=== PATIENT | female | born 1985 | race American Indian/Alaskan Native ===

== ENCOUNTER 2017-01-17 14:23 | Emergency (ER) | payer MEDICAID, MEDICARE ==
[2017-01-17 14:24] VITALS: BMI 31.8
[2017-01-17 14:47] VITALS: BP 100/67; PULSE 92; RESP 17; TEMP 98.7; O2SAT 100
--- NOTE | 2017-01-17 15:11 | ED PDOC ---
Arrival/HPI - General Chief Complaint: Dental Pain Time Seen by Provider: 01/17/17 14:59 Historian: Patient - History of Present Illness Narrative History of Present Illness (Text): 01/17/17 14:53 A 31 year old female, whose past medical history includes renal transplant, hypertension, and diabetes, presents to the emergency department complaining of upper left-side facial swelling since yesterday. Patient reports she did not go to work yesterday and instead stayed home to sleep in hopes of swelling reducing on its own. She woke up this morning to find swelling had not decreased. Patient states she has had similar problem before and had the dentist extract her tooth. Patient denies fever, drooling, chills, stiff neck. No PMD Time/Duration: 24 hours Symptom Onset: Sudden Symptom Course: Unchanged Past Medical History - Provider Review Nursing Documentation Reviewed: Yes - Infectious Disease Hx of Infectious Diseases: None - Tetanus Immunization Tetanus Immunization: Unknown - Past Medical History Past Medical History: No Previous - Cardiac Hx Cardiac Disorders: Yes Hx Hypertension: Yes Other/Comment: hypercholesteremia - Pulmonary Hx Respiratory Disorders: No - Neurological Hx Neurological Disorder: No - HEENT Hx HEENT Disorder: No - Renal Hx Renal Disorder: Yes Hx Dialysis: Yes (2009) Hx Renal Failure: Yes Other/Comment: b/l kidney transplant - Endocrine/Metabolic Hx Endocrine Disorders: Yes Hx Diabetes Mellitus Type 2: Yes - Hematological/Oncological Hx Blood Disorders: Yes Hx Anemia: Yes Hx Blood Transfusions: Yes () Hx Blood Transfusion Reaction: No - Integumentary Hx Dermatological Disorder: No - Musculoskeletal/Rheumatological Hx Musculoskeletal Disorders: No - Gastrointestinal Hx Gastrointestinal Disorders: No - Genitourinary/Gynecological Hx Genitourinary Disorders: Yes Other/Comment: kidney transplant - Psychiatric Hx Psychophysiologic Disorder: No Hx Substance Use: No - Past Surgical History Past Surgical History: No Previous - Surgical History Hx Section: Yes Hx Kidney Transplant: Yes (left 2009 right 2012) Other/Comment: pt still has dialysis cath right groin - Anesthesia Hx Anesthesia: Yes - Suicidal Assessment Feels Threatened In Home Enviroment: No Family/Social History - Physician Review Nursing Documentation Reviewed: Yes Family/Social History: No Known Family HX Smoking Status: Never Smoked Hx Alcohol Use: No Hx Substance Use: No Hx Substance Use Treatment: No Allergies/Home Meds Allergies/Adverse Reactions: Allergies Penicillins Allergy (Verified 01/17/17 14:37) ANAPHYLAXIS shellfish derived Allergy (Verified 01/17/17 14:37) RASH Home Medications: Home Meds Medication Instructions Recorded Confirmed Carvedilol [Coreg] 25 mg PO BID 01/27/15 01/17/17 Magnesium Oxide [Magox 400] 1 tab PO TID 01/27/15 01/17/17 Furosemide [Lasix] 80 mg PO BID 07/12/15 01/17/17 Mycophenolate Sodium [Mycophenolic 180 mg PO BID 07/12/15 01/17/17 Acid] Omeprazole [Prilosec] 20 mg PO DAILY 07/12/15 01/17/17 Tacrolimus [Prograf Cap] 0.5 mg PO BID 07/12/15 01/17/17 traMADol [Ultram] 50 mg PO BID 07/12/15 01/17/17 Amlodipine Besylate [Norvasc] 5 mg PO DAILY 09/13/15 01/17/17 Prednisone [Rafael] 5 mg PO DAILY 09/13/15 01/17/17 Tacrolimus [Prograf Cap] 1 mg PO BID 09/13/15 01/17/17 Review of Systems - Physician Review All systems were reviewed & negative as marked: Yes - Review of Systems Constitutional: absent: Fevers Respiratory: absent: SOB Physical Exam - Physical Exam Narrative Physical Exam (Text): Constitutional: No acute distress. Head: Significant swelling of left-upper cheek Eyes: PERRL. ENT: Moist mucous membranes. Poor dentition. Uvula midline. Neck: Supple. Cardiovascular: Regular rate. Chest: No tenderness. Respiratory: Clear to auscultation bilaterally. GI: Soft. Nontender. Nondistended. Back: No CVA tenderness. Musculoskeletal: No tenderness or swelling of extremities. Skin: No rash. Neurologic: Alert, no focal deficit. Vital Signs Reviewed: Yes Vital Signs Temp Pulse Resp BP Pulse Ox 01/17/17 14:41 98.7 F 92 H 17 100/67 100 Temperature: Afebrile Blood Pressure: Normal Pulse: Regular Respiratory Rate: Normal Appearance: Positive for: Well-Appearing Pain Distress: None Medical Decision Making ED Course and Treatment: 01/17/17 15:02 Impression: 31 year old female with left-side facial swelling. Plan: -- Cleocin -- Decadron -- Reassess and disposition Prior Visits: Notes and results from previous visits were reviewed. On 05/25/2016 for right lower leg swelling. Patient left AMA. Progress Notes: Patient treated with antibiotics, steroids, prescribed pain medication. Drug registry checked, last narcotic was almost 1 year prior. I advised patient follow up with dentistry as soon as possible, and she stated that she can see them tomorrow morning. I instructed the patient to return to the ED immediately for worsening swelling, drooling, fever, chills. - Medication Orders Current Medication Orders: Discontinued Medications Clindamycin HCl (Cleocin) 300 mg PO STAT STA PRN Reason: Protocol Stop: 01/17/17 15:08 Last Admin: 01/17/17 15:23 Dose: 300 mg Dexamethasone (Decadron) 10 mg PO STAT STA Stop: 01/17/17 15:08 Last Admin: 01/17/17 15:23 Dose: 10 mg - Scribe Statement The provider has reviewed the documentation as recorded by the Elva Rios Provider Scribe Provider Blakeibbernard Attestation: All medical record entries made by the Elva were at my direction and personally dictated by me. I have reviewed the chart and agree that the record accurately reflects my personal performance of the history, physical exam, medical decision making, and the department course for this patient. I have also personally directed, reviewed, and agree with the discharge instructions and disposition. Disposition/Present on Arrival - Present on Arrival Any Indicators Present on Arrival: No History of DVT/PE: No History of Uncontrolled Diabetes: No Urinary Catheter: No History of Decub. Ulcer: No History Surgical Site Infection Following: None - Disposition Have Diagnosis and Disposition been Completed?: Yes Diagnosis: Dental infection Disposition: HOME/ ROUTINE Disposition Time: 15:30 Patient Plan: Discharge Condition: STABLE Discharge Instructions (ExitCare): Toothache (ED) Prescriptions: Clindamycin [Cleocin] 300 mg PO TID #21 cap Dexamethasone [Decadron] 10 mg PO ONCE #5 tab oxyCODONE/Acetaminophen [Percocet 5/325 mg Tab] 1 tab PO Q6 #10 tab Forms: [employer] (Khmer)
== END 2017-01-17 15:35 | disposition home or self-care (01) ==
LOC: ED 14:23
DX: K04.7 Periapical abscess without sinus (principal)
CPT/HCPCS: 99282; J8540

== ENCOUNTER 2017-07-02 01:57 | Emergency (ER) | payer MEDICARE ==
[2017-07-02 02:45] VITALS: BMI 30.1
--- NOTE | 2017-07-02 03:09 | ED PDOC ---
Addendum entered and electronically signed by Roge Danielle DO 07/02/17 03:41 : Disposition - Clinical Impression Clinical Impression: Swelling of left side of face, Pain, dental - POA Present On Arrival: None - Disposition Disposition: Routine/Home Disposition Time: 03:41 Condition: STABLE Additional Instructions: 1. Follow up with dentist as soon as possible 2. Take medications as prescribed 3. Return to Emergency department if symptoms worsen, including but not limited to drooling, fever, or neck stiffness. Prescriptions: Clindamycin [Cleocin] 300 mg PO TID #21 cap Dexamethasone [Decadron] 10 mg PO DAILY #5 tab Instructions: Dental Pain (DC) Forms: [employer] (Nauruan), WORK NOTE Original Note: Arrival/HPI <Roge Danielle - Last Filed: 07/02/17 03:39> <Travis Buck - Last Filed: 07/02/17 03:48> - General Chief Complaint: Dental Pain - History of Present Illness Narrative History of Present Illness (Text): 07/02/17 03:09 Pt is a 32 yo F with PMH of renal transplant, hypertension, and diabetes, presents to the emergency department complaining of left facial pain and swelling for the past day. Pt stated that pain is similar to past occurences and ultimately had her teeth extracted. Pt states that since Sunday is a holiday she would not be able to get a dental appointment until Sunday. Thus, she came to Emergency department today for evaluation. Pt denies shortness of breath, drooling, fever, chills, stiff neck, headache, or dizziness. (Roge Danielle) Past Medical History - Infectious Disease Hx of Infectious Diseases: None - Tetanus Immunization Tetanus Immunization: Unknown - Past Medical History Past Medical History: No Previous - Cardiac Hx Cardiac Disorders: Yes Hx Hypertension: Yes Other/Comment: hypercholesteremia - Pulmonary Hx Respiratory Disorders: No - Neurological Hx Neurological Disorder: No - HEENT Hx HEENT Disorder: No - Renal Hx Renal Disorder: Yes Hx Dialysis: Yes (2009) Hx Renal Failure: Yes Other/Comment: b/l kidney transplant - Endocrine/Metabolic Hx Endocrine Disorders: Yes Hx Diabetes Mellitus Type 2: Yes - Hematological/Oncological Hx Blood Disorders: Yes Hx Anemia: Yes Hx Blood Transfusions: Yes () Hx Blood Transfusion Reaction: No - Integumentary Hx Dermatological Disorder: No - Musculoskeletal/Rheumatological Hx Musculoskeletal Disorders: No - Gastrointestinal Hx Gastrointestinal Disorders: No - Genitourinary/Gynecological Hx Genitourinary Disorders: Yes Other/Comment: kidney transplant - Psychiatric Hx Psychophysiologic Disorder: No Hx Substance Use: No - Past Surgical History Past Surgical History: No Previous - Surgical History Hx Section: Yes Hx Kidney Transplant: Yes (left 2010 right 2012) Other/Comment: pt still has dialysis cath right groin - Anesthesia Hx Anesthesia: Yes - Suicidal Assessment Feels Threatened In Home Enviroment: No <Roge Danielle - Last Filed: 07/02/17 03:39> Family/Social History Family/Social History: No Known Family HX Smoking Status: Never Smoked Hx Alcohol Use: No Hx Substance Use: No Hx Substance Use Treatment: No <Roge Danielle - Last Filed: 07/02/17 03:39> Allergies/Home Meds <Roge Danielle - Last Filed: 07/02/17 03:39> <Travis Buck - Last Filed: 07/02/17 03:48> Allergies/Adverse Reactions: Allergies Penicillins Allergy (Verified 07/02/17 02:45) ANAPHYLAXIS shellfish derived Allergy (Verified 07/02/17 02:45) RASH Home Medications: Home Meds Medication Instructions Recorded Confirmed Carvedilol [Coreg] 25 mg PO BID 01/27/15 07/02/17 Magnesium Oxide [Magox 400] 1 tab PO TID 01/27/15 07/02/17 Furosemide [Lasix] 80 mg PO BID 07/12/15 07/02/17 Mycophenolate Sodium [Mycophenolic 180 mg PO BID 07/12/15 07/02/17 Acid] Omeprazole [Prilosec] 20 mg PO DAILY 07/12/15 07/02/17 Tacrolimus [Prograf Cap] 0.5 mg PO BID 07/12/15 07/02/17 traMADol [Ultram] 50 mg PO BID 07/12/15 07/02/17 Amlodipine Besylate [Norvasc] 5 mg PO DAILY 09/13/15 07/02/17 Review of Systems - Review of Systems Constitutional: Normal Eyes: Normal ENT: Other (left dental pain and facial swelling) Respiratory: Normal Cardiovascular: Normal Gastrointestinal: Normal Genitourinary Female: Normal Musculoskeletal: Normal Skin: Normal Neurological: Normal Endocrine: Normal Hemo/Lymphatic: Normal Psychiatric: Normal <Roge Danielle - Last Filed: 07/02/17 03:39> Physical Exam Vital Signs Reviewed: Yes Temperature: Afebrile Blood Pressure: Normal Pulse: Regular Respiratory Rate: Normal Appearance: Positive for: Uncomfortable Pain Distress: Moderate Mental Status: Positive for: Alert and Oriented X 3 - Systems Exam Head: Present: Atraumatic, Normocephalic, Swelling (left facial swelling) Extroacular Muscles: Present: EOMI Mouth: Present: Moist Mucous Membranes, Other (left oral mucosa swelling). No: Drooling, Normal Teeth (dental cavity noted on left upper molar) Neck: Present: Normal Range of Motion Respiratory/Chest: Present: Clear to Auscultation. No: Accessory Muscle Use, Wheezes, Rales, Rhonchi Cardiovascular: Present: Regular Rate and Rhythm, Normal S1, S2. No: Murmurs, Rub, Gallop Abdomen: No: Tenderness, Distention, Peritoneal Signs, Rebound, Guarding Back: Present: Normal Inspection Upper Extremity: Present: Normal Inspection Lower Extremity: Present: Normal Inspection Neurological: Present: GCS=15 Skin: Present: Warm, Dry, Normal Color Psychiatric: Present: Alert, Oriented x 3 <Roge Danielle - Last Filed: 07/02/17 03:39> Vital Signs Temp Pulse Resp BP Pulse Ox 07/02/17 03:17 98.4 F 88 16 108/71 98 Medical Decision Making <Roge Danielle - Last Filed: 07/02/17 03:39> <Travis Buck - Last Filed: 07/02/17 03:48> ED Course and Treatment: 07/02/17 03:23 Assessment: 32 yo F presents to Emergency department with left facial swelling and dental caries. Plan: - Clindamycin - Decadron Disposition: - Rx Clindamycin and Decadron PO - Discussed with patient need for dental hygiene and to follow with dentist as soon as possible - Advised patient to return if symptoms worsen, including fever, drooling, increased swelling, intractable nausea, vomiting, neck stiffness. (Roge Danielle) Impression: Pt seen and evaluated with medical health researcher. Pt, whose past medical history includes renal transplant, hypertension, and diabetes, presented for left-sided facial pain with swelling. States similar symptoms in the past, which resulted in teeth extraction. Aware and agree with HPI, clinical findingd, plan, and management. Plan: -- Cleocin -- Decadron -- Reassess and disposition (Travis Buck) - Medication Orders Current Medication Orders: Discontinued Medications Clindamycin HCl (Cleocin) 300 mg PO STAT STA PRN Reason: Protocol Stop: 07/02/17 03:08 Dexamethasone (Decadron) 10 mg PO STAT STA Stop: 07/02/17 03:08 - PA / LABEL MAKER / Resident Statement / has reviewed & agrees with the documentation as recorded. / has examined the patient and agrees with the treatment plan. <Travis Buck - Last Filed: 07/02/17 03:48> Disposition/Present on Arrival - Present on Arrival Any Indicators Present on Arrival: No History of DVT/PE: No History of Uncontrolled Diabetes: No Urinary Catheter: No History Surgical Site Infection Following: None - Disposition Have Diagnosis and Disposition been Completed?: Yes Disposition Time: 03:31 Patient Plan: Discharge <Roge Danielle - Last Filed: 07/02/17 03:39> <Travis Buck - Last Filed: 07/02/17 03:48> - Disposition Diagnosis: Pain, dental, Swelling of left side of face Disposition: HOME/ ROUTINE Condition: STABLE Discharge Instructions (ExitCare): Dental Pain (DC) Additional Instructions: 1. Follow up with dentist as soon as possible 2. Take medications as prescribed 3. Return to Emergency department if symptoms worsen, including but not limited to drooling, fever, or neck stiffness. Prescriptions: Clindamycin [Cleocin] 300 mg PO TID #21 cap Dexamethasone [Decadron] 10 mg PO DAILY #5 tab Forms: [facility] (Nauruan), WORK NOTE
[2017-07-02 03:20] VITALS: BP 108/71; PULSE 88; O2SAT 98
[2017-07-02 04:05] VITALS: RESP 20; TEMP 98.7
== END 2017-07-02 04:05 | disposition home or self-care (01) ==
LOC: ED 01:57
DX: R22.0 Localized swelling, mass and lump, head (principal); K08.89 Other specified disorders of teeth and supporting structures; E11.9 Type 2 diabetes mellitus without complications; E78.00 Pure hypercholesterolemia, unspecified; I10 Essential (primary) hypertension
CPT/HCPCS: 99282; J8540

== ENCOUNTER 2017-07-28 15:10 | Emergency (ER) | payer MEDICARE, OTHER ==
[2017-07-28 15:10] VITALS: BMI 30.1
[2017-07-28 15:25] VITALS: TEMP 98
--- NOTE | 2017-07-28 15:48 | ED PDOC ---
Arrival/HPI - General Chief Complaint: Female Genitourinary Time Seen by Provider: 07/28/17 15:27 Historian: Patient - History of Present Illness Narrative History of Present Illness (Text): 07/28/17 15:45 32yo female [id number] with Past medical history of hypertension, Diabetes , kidney transplant who present with complaint of vaginal bleeding since this afternoon. States her LMP was June 20 2017. She states it only lasted for 2days, but usually last for 5days. States 2 home test was both positive. States she stated to have vaginal bleeding while showering today. She denies abdominal pain, fever, chills, urinary symptoms, any other complaint. Past Medical History - Provider Review Nursing Documentation Reviewed: Yes - Infectious Disease Hx of Infectious Diseases: None - Tetanus Immunization Tetanus Immunization: Unknown - Past Medical History Past Medical History: No Previous - Cardiac Hx Cardiac Disorders: Yes Hx Hypertension: Yes Other/Comment: hypercholesteremia - Pulmonary Hx Respiratory Disorders: No - Neurological Hx Neurological Disorder: No - HEENT Hx HEENT Disorder: No - Renal Hx Renal Disorder: Yes Hx Dialysis: Yes (2009) Hx Renal Failure: Yes Other/Comment: b/l kidney transplant - Endocrine/Metabolic Hx Endocrine Disorders: Yes Hx Diabetes Mellitus Type 2: Yes - Hematological/Oncological Hx Blood Disorders: Yes Hx Anemia: Yes Hx Blood Transfusions: Yes () Hx Blood Transfusion Reaction: No - Integumentary Hx Dermatological Disorder: No - Musculoskeletal/Rheumatological Hx Musculoskeletal Disorders: No - Gastrointestinal Hx Gastrointestinal Disorders: No - Genitourinary/Gynecological Hx Genitourinary Disorders: Yes Other/Comment: kidney transplant - Psychiatric Hx Psychophysiologic Disorder: No Hx Substance Use: No - Past Surgical History Past Surgical History: No Previous - Surgical History Hx Section: Yes Hx Kidney Transplant: Yes (left 2009 right 2012) Other/Comment: pt still has dialysis cath right groin - Anesthesia Hx Anesthesia: Yes Hx Anesthesia Reactions: No Hx Malignant Hyperthermia: No - Suicidal Assessment Feels Threatened In Home Enviroment: No Family/Social History - Physician Review Nursing Documentation Reviewed: Yes Family/Social History: Unknown Family HX Smoking Status: Never Smoked Hx Alcohol Use: No Hx Substance Use: No Hx Substance Use Treatment: No Allergies/Home Meds Allergies/Adverse Reactions: Allergies Penicillins Allergy (Verified 07/28/17 15:25) ANAPHYLAXIS shellfish derived Allergy (Verified 07/28/17 15:25) RASH Home Medications: Home Meds Medication Instructions Recorded Confirmed Magnesium Oxide [Magox 400] 1 tab PO TID 01/27/15 07/28/17 Tacrolimus [Prograf Cap] 1 mg PO DAILY 07/12/15 07/28/17 Carvedilol [Coreg] 1 tab PO DAILY 07/28/17 07/28/17 Prednisone [Rafael] 1 tab PO DAILY 07/28/17 07/28/17 Review of Systems - Physician Review All systems were reviewed & negative as marked: Yes - Review of Systems Constitutional: Normal Eyes: Normal ENT: Normal Respiratory: Normal Cardiovascular: Normal Gastrointestinal: Normal Genitourinary Female: Vaginal Bleeding. absent: Dysuria, Frequency, Hematuria, Vaginal Discharge Musculoskeletal: Normal Skin: Normal Neurological: Normal Endocrine: Normal Hemo/Lymphatic: Normal Psychiatric: Normal Physical Exam Vital Signs Reviewed: Yes Vital Signs Temp Pulse Resp BP Pulse Ox 07/28/17 17:48 86 18 115/76 96 07/28/17 15:21 98 F 92 H 19 117/82 95 Temperature: Afebrile Blood Pressure: Normal Pulse: Regular Respiratory Rate: Normal Appearance: Positive for: Well-Appearing, Non-Toxic, Comfortable Pain Distress: None Mental Status: Positive for: Alert and Oriented X 3 - Systems Exam Head: Present: Atraumatic, Normocephalic Pupils: Present: PERRL Extroacular Muscles: Present: EOMI Conjunctiva: Present: Normal Mouth: Present: Moist Mucous Membranes Neck: Present: Normal Range of Motion Respiratory/Chest: Present: Clear to Auscultation, Good Air Exchange. No: Respiratory Distress, Accessory Muscle Use Cardiovascular: Present: Regular Rate and Rhythm, Normal S1, S2. No: Murmurs Abdomen: Present: Normal Bowel Sounds. No: Tenderness, Distention, Peritoneal Signs Genitourinary/Pelvic Exam: Present: Other (Pt declined pelvic exam) Back: Present: Normal Inspection Upper Extremity: Present: Normal Inspection. No: Cyanosis, Edema Lower Extremity: Present: Normal Inspection. No: Edema Neurological: Present: GCS=15, CN II-XII Intact, Speech Normal Skin: Present: Warm, Dry, Normal Color. No: Rashes Psychiatric: Present: Alert, Oriented x 3, Normal Insight, Normal Concentration Medical Decision Making ED Course and Treatment: 07/29/17 01:26 Pt in Emergency department for stated history. She denied abdominal/back pain in Emergency department. she was hemodynamically stable in Emergency department. She declined pelvic exam. Per the US tech, pt also refused transvaginal Ultrasound I spoke and advised pt on the improtnave of having transvaginal US at this stage of her . She notes that she understood, but still refused. states the last time she have transvaginal test, she bleed profusely and ended up in OR to stop the bleeding. Pelvic Us was done. Beta of 26.77 was noted. she was treated with Macrobid for UTI. Her result was DW her Pelvic US 07/29/17 01:31 IMPRESSION: No evidence of intrauterine . The ovaries were not visualized in this exam. Correlation with the beta HCG levels is suggested she notes that she have appt. with OB on Sunday. she was advised to f/u with her OB on Sunday for a repeat beta. TRT Emergency department for any new or worsening symptoms - Lab Interpretations Lab Results: 07/28/17 16:10 07/28/17 16:10 Lab Results 07/28/17 17:00: Blood Type Confirm AB POSITIVE 07/28/17 16:10: Blood Type AB POSITIVE, Antibody Screen Negative, BBK History Checked No verified bt 07/28/17 16:10: Beta HCG, Quant 26.77 H 07/28/17 16:10: Sodium 137, Potassium 3.5 L, Chloride 105, Carbon Dioxide 23, Anion Gap 13, BUN 12, Creatinine 1.1, Est GFR ( Amer) > 60, Est GFR (Non- Af Amer) 58, Random Glucose 179 H, Calcium 10.6 H, Total Bilirubin 1.3, AST 23, ALT 23, Alkaline Phosphatase 93, Total Protein 8.2, Albumin 4.2, Globulin 4.0, Albumin/Globulin Ratio 1.1 07/28/17 16:10: PT 12.7 H, INR 1.11 H, APTT 36.2 07/28/17 16:10: WBC 8.6 D, RBC 4.35, Hgb 10.8 L, Hct 34.2 L, MCV 78.6 L, MCH 24.8 L, MCHC 31.6, RDW 18.0 H, Plt Count 203, MPV 9.5, Gran % 83.0 H, Lymph % ( Auto) 9.8 L, [place] % (Auto) 4.9, Eos % (Auto) 2.2, Baso % (Auto) 0.1, Gran # 7.17 H, Lymph # (Auto) 0.9 L, [place] # (Auto) 0.4, Eos # (Auto) 0.2, Baso # (Auto ) 0.01 07/28/17 16:07: Urine Color Yellow, Urine Appearance Cloudy, Urine pH 6.5, Ur Specific [place] 1.015, Urine Protein 30 H, Urine Glucose (UA) Negative, Urine Ketones Negative, Urine Blood Large H, Urine Nitrate Positive H, Urine Bilirubin Negative, Urine Urobilinogen 0.2, Ur Leukocyte Esterase Large H, Urine RBC Tntc, Urine WBC Tntc, Ur Epithelial Cells 10 - 12, Urine Bacteria Many , Urine HCG, Qual Positive - RAD Interpretation Radiology Orders: 07/28/17 15:39 PELVIS ULTRASOUND [US] Stat - Medication Orders Current Medication Orders: Discontinued Medications Sodium Chloride (Sodium Chloride 0.9%) 1,000 mls @ 999 mls/hr IV .Q1H1M STA Stop: 07/28/17 17:04 Last Admin: 07/28/17 16:17 Dose: 999 mls/hr eMAR Start Stop Document 07/28/17 16:17 ABHILASH (Rec: 07/28/17 16:17 ABHILASH [id number]) Intravenous Solution Start Date 07/28/17 Start Time 16:17 End Date 07/28/17 End time 17:17 Total Infusion Time 60 Nitrofurantoin Macrocrystals (Macrobid) 100 mg PO ONCE STA PRN Reason: Protocol Stop: 07/28/17 18:04 Last Admin: 07/28/17 18:29 Dose: 100 mg Disposition/Present on Arrival - Present on Arrival Any Indicators Present on Arrival: No History of DVT/PE: No History of Uncontrolled Diabetes: No Urinary Catheter: No History of Decub. Ulcer: No History Surgical Site Infection Following: None - Disposition Have Diagnosis and Disposition been Completed?: Yes Diagnosis: UTI (urinary tract infection), Threatened Disposition: HOME/ ROUTINE Disposition Time: 17:55 Patient Plan: Discharge Condition: STABLE Discharge Instructions (ExitCare): Urinary Tract Infections in Adults Additional Instructions: Follow up with your OB Return to Emergency department for any new or worsening symptoms Prescriptions: Nitrofurantoin Macrocrystals [Macrobid] 100 mg PO BID #14 cap Referrals: Drew Smith MD [Staff Provider] - Follow up with primary Forms: [employer] (Turkmen), WORK NOTE
[2017-07-28] MEDS ORDERED: Sodium Chloride 0.9% 1,000 ML IV STA (16:04)
[2017-07-28 16:15] LABS: PH,URINE 6.5 (4.7-8.0); URINE BILIRUBIN NEGATIVE (NEGATIVE); URINE BLOOD LARGE (NEGATIVE); URINE GLUCOSE (UA) NEGATIVE (NEGATIVE); URINE LEUKOCYTE ESTERASE LARGE Leu/uL (NEGATIVE); URINE PROTEIN 30 mg/dL (<30 mg/dL); URINE UROBILINOGEN 0.2 E.U./dL (<1 E.U./dL)
[2017-07-28 16:16] LABS: URINE APPEARANCE CLOUDY (CLEAR); URINE COLOR YELLOW (YELLOW)
[2017-07-28 16:26] LABS: URINE BACTERIA MANY (NEG); URINE RBC TNTC /hpf (0-2); URINE WBC TNTC /hpf (0-6)
[2017-07-28 16:27] LABS: HCG,QUALITATIVE URINE POSITIVE (NEGATIVE)
[2017-07-28 16:30] LABS: BASO # 0.01 K/mm3 (0.0-2.0); BASO % 0.1 % (0.0-3.0); EOS # 0.2 (0.0-0.7); EOS % 2.2 % (1.5-5.0); GRAN # 7.17 (1.4-6.5); HEMOGLOBIN 10.8 g/dL (12.0-16.0); LYMPH # 0.9 (1.2-3.4); LYMPH % 9.8 % (22.0-35.0); MEAN CELL VOLUME 78.6 fl (80.0-105.0); MEAN CORPUSCULAR HEMOGLOBIN 24.8 pg (25.0-35.0); MEAN CORPUSCULAR HGB CONC 31.6 g/dl (31.0-37.0); MEAN PLATELET VOLUME 9.5 fl (7.0-11.0); MONO # 0.4 (0.1-0.6); MONO % 4.9 % (1.0-6.0); RBC 4.35 10^6/uL (3.5-6.1); WHITE BLOOD COUNT 8.6 10^3/ul (4.5-11.0)
[2017-07-28 16:36] LABS: INR 1.11 (0.93-1.08); PARTIAL THROMBOPLASTIN TIME 36.2 Seconds (25.1-36.5); PROTHROMBIN TIME 12.7 SECONDS (9.4-12.5)
[2017-07-28 16:39] LABS: ALB/GLOB RATIO 1.1 (1.1-1.8); ALBUMIN 4.2 g/dL (3.0-4.8); ALT/SGPT 23 U/L (7-56); AST/SGOT 23 U/L (14-36); BLOOD UREA NITROGEN 12 mg/dL (7-21); CALCIUM 10.6 mg/dL (8.4-10.5); GFR AFRICAN-AMERICAN > 60; GFR NON-AFRICAN AMERICAN 58
--- NOTE | 2017-07-28 17:38 | US ---
HISTORY: vaginalk bleeding/ COMPARISON: None available. TECHNIQUE: Transabdominal ultrasound examination of the pelvis. Patient refusal transvaginal exam. FINDINGS: UTERUS: Measures 10.2 x 3.7 x 3.7 cm. Normal in size and appearance. No fibroid or other mass lesion seen. ENDOMETRIUM: Measures 6.5 mm in diameter. Unremarkable. CERVIX: No cervical abnormality identified. RIGHT OVARY: The right ovary was not visualized. LEFT OVARY: The left ovary was not visualized. FREE FLUID: No significant free fluid noted. OTHER FINDINGS: None. IMPRESSION: No evidence of intrauterine . The ovaries were not visualized in this exam. Correlation with the beta HCG levels is suggested
[2017-07-28 17:49] VITALS: BP 115/76; PULSE 86; RESP 18; O2SAT 96
== END 2017-07-28 18:31 | disposition home or self-care (01) ==
LOC: ED 15:10
DX: O20.0 Threatened abortion (principal); O23.40 Unspecified infection of urinary tract in pregnancy, unspecified trimester
CPT/HCPCS: 76856; 80053; 81001; 84702; 84703; 85025; 85610; 85730; 86850; 86900; 87086; 96360; 99283; J7040

== ENCOUNTER 2017-08-06 02:00 | Emergency (ER) | payer OTHER ==
[2017-08-06 02:00] VITALS: BMI 30.1
[2017-08-06 02:15] VITALS: RESP 18; TEMP 98.7
--- NOTE | 2017-08-06 02:35 | ED PDOC ---
Arrival/HPI <Travis Buck - Last Filed: 08/06/17 03:41> - General Historian: Patient - History of Present Illness Time/Duration: < week Symptom Onset: Sudden Symptom Course: Improving Quality: Cramping Activities at Onset: Rest Context: Sitting <Larry Pinto - Last Filed: 08/06/17 05:52> - General Chief Complaint: Female Genitourinary Time Seen by Provider: 08/06/17 02:08 - History of Present Illness Narrative History of Present Illness (Text): 08/06/17 02:25 Patient is a 32F w/ a PMH of a bilateral kidney transplant in the remote past who comes in with a CC of vaginal bleeding and a negative test at home. She states that on 07/28 she presented to the ED with vaginal bleeding and a positive test. She was told to follow up with citrus fruit packer. She called to make an appointment but they couldn't see her until 08/13. On Sunday of this week she had an episode of heavy bleeding and since then the bleeding has slowed down. Today she is spotting. Patient had a negative test today which prompted her to come to the ED. Her menstrual history is as follows: regular period lasting 5 days ending on 05/13, 2 day light bleeding on 05/23, missed period in June. (Larry Pinto) Past Medical History - Provider Review Nursing Documentation Reviewed: Yes <Travis Buck - Last Filed: 08/06/17 03:41> - Infectious Disease Hx of Infectious Diseases: None - Tetanus Immunization Tetanus Immunization: Unknown - Past Medical History Past Medical History: No Previous - Cardiac Hx Cardiac Disorders: Yes Hx Hypertension: Yes Other/Comment: hypercholesteremia - Pulmonary Hx Respiratory Disorders: No - Neurological Hx Neurological Disorder: No - HEENT Hx HEENT Disorder: No - Renal Hx Renal Disorder: Yes Hx Dialysis: Yes (2009) Hx Renal Failure: Yes Other/Comment: b/l kidney transplant - Endocrine/Metabolic Hx Endocrine Disorders: Yes Hx Diabetes Mellitus Type 2: Yes - Hematological/Oncological Hx Blood Disorders: Yes Hx Anemia: Yes Hx Blood Transfusions: Yes () Hx Blood Transfusion Reaction: No - Integumentary Hx Dermatological Disorder: No - Musculoskeletal/Rheumatological Hx Musculoskeletal Disorders: No - Gastrointestinal Hx Gastrointestinal Disorders: No - Genitourinary/Gynecological Hx Genitourinary Disorders: Yes Other/Comment: kidney transplant - Psychiatric Hx Psychophysiologic Disorder: No Hx Substance Use: No - Past Surgical History Past Surgical History: No Previous - Surgical History Hx Section: Yes Hx Kidney Transplant: Yes (left 2009 right 2012) Other/Comment: pt still has dialysis cath right groin - Anesthesia Hx Anesthesia: Yes Hx Anesthesia Reactions: No Hx Malignant Hyperthermia: No - Suicidal Assessment Feels Threatened In Home Enviroment: No <Larry Pinto - Last Filed: 08/06/17 05:52> Family/Social History - Physician Review Nursing Documentation Reviewed: Yes Family/Social History: Unknown Family HX <Travis Buck - Last Filed: 08/06/17 03:41> Family/Social History: Unknown Family HX Smoking Status: Never Smoked Hx Alcohol Use: No Hx Substance Use: No Hx Substance Use Treatment: No <Larry Pinto - Last Filed: 08/06/17 05:52> Allergies/Home Meds <Travis Buck - Last Filed: 08/06/17 03:41> <Larry Pinto - Last Filed: 08/06/17 05:52> Allergies/Adverse Reactions: Allergies Penicillins Allergy (Verified 07/28/17 15:25) ANAPHYLAXIS shellfish derived Allergy (Verified 07/28/17 15:25) RASH Home Medications: Home Meds Medication Instructions Recorded Confirmed Magnesium Oxide [Magox 400] 1 tab PO TID 01/27/15 08/06/17 Tacrolimus [Prograf Cap] 1 mg PO DAILY 07/12/15 08/06/17 Carvedilol [Coreg] 1 tab PO DAILY 07/28/17 08/06/17 Prednisone [Rafael] 1 tab PO DAILY 07/28/17 08/06/17 Review of Systems - Review of Systems Constitutional: Normal Eyes: Normal ENT: Normal Respiratory: Normal Cardiovascular: Normal Gastrointestinal: Normal, Abdominal Pain Genitourinary Female: Vaginal Bleeding Musculoskeletal: Normal Skin: Normal Neurological: Normal Endocrine: Normal Hemo/Lymphatic: Normal Psychiatric: Normal <Larry Pinto - Last Filed: 08/06/17 05:52> Physical Exam Vital Signs Reviewed: Yes Temperature: Afebrile Blood Pressure: Hypertensive Pulse: Regular Respiratory Rate: Tachypneic Appearance: Positive for: Well-Appearing, Non-Toxic, Comfortable Pain Distress: None Mental Status: Positive for: Alert and Oriented X 3 - Systems Exam Head: Present: Atraumatic, Normocephalic Pupils: Present: PERRL Extroacular Muscles: Present: EOMI Conjunctiva: Present: Normal Mouth: Present: Moist Mucous Membranes Neck: Present: Normal Range of Motion Respiratory/Chest: Present: Clear to Auscultation, Good Air Exchange. No: Respiratory Distress, Accessory Muscle Use Cardiovascular: Present: Regular Rate and Rhythm. No: Murmurs, Normal S1, S2 Abdomen: Present: Normal Bowel Sounds. No: Tenderness, Distention, Peritoneal Signs Upper Extremity: Present: Normal Inspection. No: Cyanosis, Edema Lower Extremity: Present: Normal Inspection. No: Edema Neurological: Present: GCS=15, CN II-XII Intact, Speech Normal Skin: Present: Warm, Dry, Normal Color. No: Rashes Psychiatric: Present: Alert, Oriented x 3, Normal Insight, Normal Concentration <Larry Pinto - Last Filed: 08/06/17 05:52> Vital Signs Temp Pulse Resp BP Pulse Ox 08/06/17 04:00 85 18 135/77 98 08/06/17 02:14 98.7 F 100 H 18 157/91 H 99 Medical Decision Making <Travis Buck - Last Filed: 08/06/17 03:41> Reassessment Condition: Improved <Larry Pinto - Last Filed: 08/06/17 05:52> ED Course and Treatment: Impression: Pt seen and evaluated with medical anthropologist. Pt, whose past medical history includes bilateral kidney transplant, presented for vaginal bleeding and a negative test. Pt recently seen in the Emergency department on 07/28 for similar complaint, noted to have a positive test, and instructed to f/u with her OBGYN.Aware and agree with HPI, clinical findings, plan, and management. Plan: -- Pelvis US -- Beta-HCG -- Reassess and disposition (Travis Buck) 08/06/17 02:56 Patient passed clots vaginally on sunday and now is lightly bleeding + negative home preg today. Bhcg and pelvic US. Patient stated she is unable to tolerate transvaginal US due to pain. States last time she needed transvaginal US she was put under anesthesia 08/06/17 04:37 BHcG negative, most likely Spontaneous AB. Patient instructed to f/u with IN SERVICE EDUCATOR (Larry Pinto) - Lab Interpretations Lab Results: Lab Results 08/06/17 02:45: Beta HCG, Quant < 2.39 - RAD Interpretation Radiology Orders: 08/06/17 02:57 Pelvis [PELVIS ULTRASOUND] [US] Routine - PA / VEHICLE COST ENGINEER / Resident Statement THADDEUS has reviewed & agrees with the documentation as recorded. / has examined the patient and agrees with the treatment plan. <Travis Buck - Last Filed: 08/06/17 03:41> - PA / VEHICLE COST ENGINEER / Resident Statement THADDEUS has reviewed & agrees with the documentation as recorded. / has examined the patient and agrees with the treatment plan. <Larry Pinto - Last Filed: 08/06/17 05:52> Disposition/Present on Arrival <Travis Buck - Last Filed: 08/06/17 03:41> - Present on Arrival Any Indicators Present on Arrival: No History of DVT/PE: No History of Uncontrolled Diabetes: No Urinary Catheter: No History of Decub. Ulcer: No History Surgical Site Infection Following: None - Disposition Have Diagnosis and Disposition been Completed?: Yes Disposition Time: 04:38 Patient Plan: Discharge <Larry Pinto - Last Filed: 08/06/17 05:52> - Disposition Diagnosis: Spontaneous Disposition: HOME/ ROUTINE Condition: STABLE Additional Instructions: Please follow up with primary care doctor within one week Please follow up with mechanical systems engineer w/in one week Please come back to the ED if you develop fevers or worsening abdominal pain Forms: [employer] (Uzbek)
[2017-08-06 05:05] VITALS: BP 135/77; PULSE 85; O2SAT 98
--- NOTE | 2017-08-06 05:47 | US ---
EXAM: US First Trimester, Transabdominal CLINICAL HISTORY: 32 years old, female; Pain; Pelvic pain; Additional info: Cant tolerate transvaginal us. Poss. Spontanous ab TECHNIQUE: Real-time transabdominal obstetrical ultrasound of the maternal pelvis and a first trimester with image documentation. COMPARISON: US - PELVIS ULTRASOUND 2017-07-28 15:42 FINDINGS: Gestation: No intrauterine gestational sac. Uterus/cervix: Endometrium: 0.7 cm in thickness. Closed cervix. Ovaries: Not visualized. No adnexal masses. Free fluid: No significant free fluid. IMPRESSION: 1. No intrauterine gestation. DDX: Early IUP, missed , ectopic .
== END 2017-08-06 04:46 | disposition home or self-care (01) ==
LOC: ED 02:00
DX: O03.9 Complete or unspecified spontaneous abortion without complication (principal)

== ENCOUNTER 2017-10-31 10:30 | Emergency (ER) | payer MEDICARE, MEDICAID ==
[2017-10-31 10:30] VITALS: BMI 30.1
--- NOTE | 2017-10-31 10:57 | ED PDOC ---
Arrival/HPI - General Time Seen by Provider: 10/31/17 10:56 Historian: Patient - History of Present Illness Narrative History of Present Illness (Text): 10/31/17 10:57 This 32 yo female, Gravid, 11 weeks, with pmh IDDM, s/p bilateral kidney transplant, presents to this ED c/o abdominal injury x TRIM CARPENTER. Patient stated she tripped and fell down on her abdomen. Patient denies abdominal pain, pelvic pain, vaginal bleeding, n/v, WALSH, dizziness, syncope, or abnormal gait. Patient denies somatic complains. Time/Duration: Other (see hpi) Context: Home Past Medical History - Provider Review Nursing Documentation Reviewed: Yes - Infectious Disease Hx of Infectious Diseases: None - Tetanus Immunization Tetanus Immunization: Unknown - Past Medical History Past Medical History: No Previous - Cardiac Hx Cardiac Disorders: Yes Hx Hypertension: Yes Other/Comment: hypercholesteremia - Pulmonary Hx Respiratory Disorders: No - Neurological Hx Neurological Disorder: No - HEENT Hx HEENT Disorder: No - Renal Hx Renal Disorder: Yes Hx Dialysis: Yes (2009) Hx Renal Failure: Yes Other/Comment: b/l kidney transplant - Endocrine/Metabolic Hx Endocrine Disorders: Yes Hx Diabetes Mellitus Type 2: Yes - Hematological/Oncological Hx Blood Disorders: Yes Hx Anemia: Yes Hx Blood Transfusions: Yes () Hx Blood Transfusion Reaction: No - Integumentary Hx Dermatological Disorder: No - Musculoskeletal/Rheumatological Hx Musculoskeletal Disorders: No - Gastrointestinal Hx Gastrointestinal Disorders: No - Genitourinary/Gynecological Hx Genitourinary Disorders: Yes Other/Comment: kidney transplant - Psychiatric Hx Psychophysiologic Disorder: No Hx Substance Use: No - Past Surgical History Past Surgical History: No Previous - Surgical History Hx Section: Yes Hx Kidney Transplant: Yes (left 2009 right 2012) Other/Comment: pt still has dialysis cath right groin - Anesthesia Hx Anesthesia: Yes Hx Anesthesia Reactions: No Hx Malignant Hyperthermia: No - Suicidal Assessment Feels Threatened In Home Enviroment: No Family/Social History - Physician Review Nursing Documentation Reviewed: Yes Family/Social History: Other (noncontributory) Smoking Status: Never Smoked Hx Alcohol Use: No Hx Substance Use: No Hx Substance Use Treatment: No Allergies/Home Meds Allergies/Adverse Reactions: Allergies Penicillins Allergy (Verified 10/31/17 11:18) ANAPHYLAXIS shellfish derived Allergy (Verified 10/31/17 11:18) RASH Home Medications: Home Meds Medication Instructions Recorded Confirmed amLODIPine [Norvasc] 10 mg PO DAILY 10/31/17 10/31/17 Review of Systems - Physician Review All systems were reviewed & negative as marked: Yes - Review of Systems Constitutional: Normal. absent: Fatigue, Weight Change, Fevers Eyes: Normal ENT: Normal Respiratory: Normal. absent: SOB, Cough Cardiovascular: Normal. absent: Chest Pain Gastrointestinal: Normal. absent: Abdominal Pain, Nausea, Vomiting Genitourinary Female: Normal. absent: Dysuria, Frequency, Hematuria, Vaginal Bleeding, Vaginal Discharge Musculoskeletal: Normal. absent: Back Pain, Neck Pain Skin: Normal. absent: Rash Neurological: Normal. absent: Headache, Dizziness, Focal Weakness, Gait Changes , Speech Changes, Facial Droop, Disequilibrium, Seizure Endocrine: Normal Hemo/Lymphatic: Normal Psychiatric: Normal Physical Exam Vital Signs Temp Pulse Resp BP Pulse Ox 10/31/17 12:50 58 L 18 118/75 99 10/31/17 11:22 98.3 F 52 L 18 116/72 99 10/31/17 11:06 98.3 F 52 L 18 116/72 98 Temperature: Afebrile Blood Pressure: Normal Pulse: Regular Respiratory Rate: Normal Appearance: Positive for: Well-Appearing, Non-Toxic, Comfortable Pain Distress: None Mental Status: Positive for: Alert and Oriented X 3 - Systems Exam Head: Present: Atraumatic, Normocephalic Pupils: Present: PERRL Extroacular Muscles: Present: EOMI Conjunctiva: Present: Normal Mouth: Present: Moist Mucous Membranes Neck: Present: Normal Range of Motion Respiratory/Chest: Present: Clear to Auscultation, Good Air Exchange. No: Respiratory Distress, Accessory Muscle Use Cardiovascular: Present: Regular Rate and Rhythm, Normal S1, S2. No: Murmurs Abdomen: No: Tenderness, Distention, Peritoneal Signs, Rebound, Guarding Back: Present: Normal Inspection Upper Extremity: Present: Normal Inspection. No: Cyanosis, Edema Lower Extremity: Present: Normal Inspection. No: Edema Neurological: Present: GCS=15, CN II-XII Intact, Speech Normal Skin: Present: Warm, Dry, Normal Color. No: Rashes Psychiatric: Present: Alert, Oriented x 3, Normal Insight, Normal Concentration Medical Decision Making ED Course and Treatment: 06/20/18 13:15 Patient is not in the room. Farzana EMT stated she saw the patient leaving her room , speaking on her cellphone. Patient ELOPED before labs, or u/s result available. Re-evaluation Time: 13:16 Reassessment Condition: Re-examined, Unchanged - Lab Interpretations Lab Results: 10/31/17 12:30 10/31/17 12:30 Lab Results 10/31/17 12:30: Sodium 141, Potassium 3.4 L, Chloride 107, Carbon Dioxide 20 L, Anion Gap 17, BUN 10, Creatinine 1.0, Est GFR ( Amer) > 60, Est GFR (Non- Af Amer) > 60, Random Glucose 117 H, Calcium 10.6 H, Total Bilirubin 0.5, AST 22 , ALT 13, Alkaline Phosphatase 71, Total Protein 8.9 H, Albumin 4.5, Globulin 4.4, Albumin/Globulin Ratio 1.0 L 10/31/17 12:30: WBC 9.8, RBC 4.04, Hgb 9.7 L, Hct 30.3 L, MCV 75.0 L D, MCH 24.0 L, MCHC 32.0, RDW 17.8 H, Plt Count 198, MPV 9.7, Gran % 76.7 H, Lymph % ( Auto) 15.1 L, [place] % (Auto) 7.2 H, Eos % (Auto) 0.9 L, Baso % (Auto) 0.1, Gran # 7.51 H, Lymph # (Auto) 1.5, [place] # (Auto) 0.7 H, Eos # (Auto) 0.1, Baso # ( Auto) 0.01 - RAD Interpretation Radiology Orders: 10/31/17 11:14 AGE [US] Stat Disposition/Present on Arrival - Present on Arrival Any Indicators Present on Arrival: No History of DVT/PE: No History of Uncontrolled Diabetes: No Urinary Catheter: No History Surgical Site Infection Following: None - Disposition Have Diagnosis and Disposition been Completed?: Yes Diagnosis: with 13 completed weeks gestation, Fall Disposition: ELOPEMENT - ER ONLY Disposition Time: 01:15 Condition: UNKNOWN
[2017-10-31 11:18] VITALS: RESP 18
[2017-10-31 13:02] LABS: BASO # 0.01 K/mm3 (0.0-2.0); BASO % 0.1 % (0.0-3.0); EOS # 0.1 (0.0-0.7); EOS % 0.9 % (1.5-5.0); GRAN # 7.51 (1.4-6.5); GRAN % 76.7 % (50.0-68.0); HEMOGLOBIN 9.7 g/dL (12.0-16.0); LYMPH # 1.5 (1.2-3.4); LYMPH % 15.1 % (22.0-35.0); MEAN PLATELET VOLUME 9.7 fl (7.0-11.0); MONO # 0.7 (0.1-0.6); MONO % 7.2 % (1.0-6.0); RBC 4.04 10^6/uL (3.5-6.1); RED CELL DISTRIBUTION WIDTH 17.8 % (11.5-14.5); WHITE BLOOD COUNT 9.8 10^3/ul (4.5-11.0)
[2017-10-31 13:20] LABS: ALBUMIN 4.5 g/dL (3.0-4.8); ALT/SGPT 13 U/L (7-56); AST/SGOT 22 U/L (14-36); BLOOD UREA NITROGEN 10 mg/dL (7-21); CALCIUM 10.6 mg/dL (8.4-10.5); GFR AFRICAN-AMERICAN > 60; GFR NON-AFRICAN AMERICAN > 60
--- NOTE | 2017-10-31 15:35 | US ---
PROCEDURE: OB Pelvic Ultrasound HISTORY: pain/ fall LMP: COMPARISON: None available. FINDINGS: UTERUS: There is a single viable intrauterine . heart rate 153. The placenta is anterior and clear of the os. There is a variable present a cordoba. There is motion. BPD equals 13 weeks 6 days Head circumference equals 13 weeks 5 days Femur length equals 13 weeks 0 days. Mean ultrasound age 13 weeks 4 days Estimated date of delivery 05/04/2018 A detailed anatomic survey was not performed CERVIX: Long and closed. No cervical abnormality seen. RIGHT OVARY: Not seen LEFT OVARY: Not seen FREE FLUID: None. OTHER FINDINGS: None. IMPRESSION: Single viable intrauterine with a gestational age of 13 weeks 4 days
[2017-10-31 18:54] VITALS: BP 120/69; PULSE 60; TEMP 98.2; O2SAT 100
== END 2017-10-31 13:30 | disposition left against medical advice (07) ==
LOC: ED 10:30
DX: O26.891 Other specified pregnancy related conditions, first trimester (principal); Z3A.13 13 weeks gestation of pregnancy; W10.9XXA Fall (on) (from) unspecified stairs and steps, initial encounter; Y92.9 Unspecified place or not applicable

== ENCOUNTER 2018-04-07 00:37 | Emergency (ER) | payer MEDICARE, MEDICAID ==
[2018-04-07 00:37] VITALS: BMI 30.1
[2018-04-07 00:59] VITALS: TEMP 98.2
--- NOTE | 2018-04-07 01:55 | ED PDOC ---
Arrival/HPI - General Chief Complaint: ENT Problem Time Seen by Provider: 04/07/18 00:38 Historian: Patient - History of Present Illness Narrative History of Present Illness (Text): 04/07/18 01:51 Rosalinda Ramos is a 32 year old female, currently 9 months , scheduled for a in 3 days, who presents to the Emergency department with 2 day history of acid reflux. Patient states she feels burning sensation radiating up and down the center of chest. Patient states she feel as if food is coming up. Patient states she has been burping more frequently. Patient notes she has a history of acid reflux and was taking Nexium prior to . Patient states last week she was hospitalized for evaluation of possible early delivery with leakage of fluids. Patient was hospitalized for a few days and placed under pho[place] toring and discharged home. pt currently denies any abdominal pain, leakage of fluids, contractions, or vaginal bleeding. Patient states during this she has had nausea and vomiting up until last week and has been eating unhealthy large amounts of food. Patient also denies any chest pain, shortness of breath, fever, chills, URI symptoms, or any other complaints. Time/Duration: Other (2 days) Symptom Onset: Gradual Symptom Course: Unchanged Activities at Onset: Light Context: Home Past Medical History - Provider Review Nursing Documentation Reviewed: Yes - Travel History Have you recently traveled outside [place] w/in the past 3 mons?: No - Infectious Disease Hx of Infectious Diseases: None - Tetanus Immunization Tetanus Immunization: Unknown - Past Medical History Past Medical History: No Previous - Cardiac Hx Cardiac Disorders: Yes Hx Hypertension: Yes Other/Comment: hypercholesteremia - Pulmonary Hx Respiratory Disorders: No - Neurological Hx Neurological Disorder: No - HEENT Hx HEENT Disorder: No - Renal Hx Renal Disorder: Yes Hx Dialysis: Yes (2009) Hx Renal Failure: Yes Other/Comment: b/l kidney transplant - Endocrine/Metabolic Hx Endocrine Disorders: Yes Hx Diabetes Mellitus Type 2: Yes - Hematological/Oncological Hx Blood Disorders: Yes Hx Anemia: Yes Hx Blood Transfusions: Yes () Hx Blood Transfusion Reaction: No - Integumentary Hx Dermatological Disorder: No - Musculoskeletal/Rheumatological Hx Musculoskeletal Disorders: No - Gastrointestinal Hx Gastrointestinal Disorders: No - Genitourinary/Gynecological Hx Genitourinary Disorders: Yes Other/Comment: kidney transplant - Psychiatric Hx Psychophysiologic Disorder: No Hx Substance Use: No - Past Surgical History Past Surgical History: No Previous - Surgical History Hx Section: Yes Hx Kidney Transplant: Yes (left 2010 right 2012) Other/Comment: pt still has dialysis cath right groin - Anesthesia Hx Anesthesia: Yes Hx Anesthesia Reactions: No Hx Malignant Hyperthermia: No - Suicidal Assessment Feels Threatened In Home Enviroment: No Family/Social History - Physician Review Nursing Documentation Reviewed: Yes Family/Social History: Unknown Family HX Smoking Status: Never Smoked Hx Alcohol Use: No Hx Substance Use: No Hx Substance Use Treatment: No Allergies/Home Meds Allergies/Adverse Reactions: Allergies Penicillins Allergy (Verified 04/07/18 00:58) ANAPHYLAXIS shellfish derived Allergy (Verified 04/07/18 00:58) RASH Home Medications: Home Meds Medication Instructions Recorded Confirmed amLODIPine [Norvasc] 10 mg PO DAILY 10/31/17 10/31/17 Review of Systems - Physician Review All systems were reviewed & negative as marked: Yes - Review of Systems Constitutional: Normal. absent: Fevers Eyes: Normal ENT: Sore Throat. absent: Voice Changes, Epistaxis, Sinus Congestion Respiratory: Normal. absent: SOB, Cough Cardiovascular: Normal. absent: Chest Pain Gastrointestinal: Other (+acid reflux). absent: Abdominal Pain, Diarrhea, Nausea, Vomiting Genitourinary Female: Normal. absent: Dysuria, Frequency Musculoskeletal: Normal. absent: Arthralgias, Back Pain Skin: Normal. absent: Rash, Pruritis Neurological: Normal. absent: Headache, Dizziness Psychiatric: Normal Physical Exam Vital Signs Reviewed: Yes Vital Signs Temp Pulse Resp BP Pulse Ox 04/07/18 00:58 98.2 F 108 H 18 137/82 97 Temperature: Afebrile Blood Pressure: Normal Pulse: Tachycardic Respiratory Rate: Normal Appearance: Positive for: Well-Appearing, Non-Toxic, Comfortable Pain Distress: None Mental Status: Positive for: Alert and Oriented X 3 - Systems Exam Head: Present: Atraumatic, Normocephalic Conjunctiva: Present: Normal Ears: Present: Normal, NORMAL TM, Normal Canal. No: Erythema, TM Bulging, Fluid, TM Perf Mouth: Present: Moist Mucous Membranes Pharnyx: Present: Normal. No: ERYTHEMA, EXUDATE, TONSILS ENLARGED, Peritonsilar Swelling, Uvular Deviation, Muffled/Hoarse Voice, Strider, Soft Palate/Uvular Edema Nose (External): Present: Atraumatic Nose (Internal): Present: Normal Inspection. No: Clear Mucous, Rhinorrhea, Septal Deviation, Septal Hematoma, Epistaxis Neck: Present: Normal Range of Motion, Trachea Midline. No: Meningeal Signs, MIDLINE TENDERNESS, Paraspinal Tenderness, Lymphadenopathy Respiratory/Chest: Present: Clear to Auscultation, Good Air Exchange. No: Respiratory Distress, Accessory Muscle Use, Tender to Palpation Cardiovascular: Present: Regular Rate and Rhythm, Normal S1, S2. No: Murmurs Abdomen: No: Tenderness, Peritoneal Signs Back: Present: Normal Inspection Upper Extremity: Present: Normal Inspection. No: Cyanosis, Edema Lower Extremity: Present: Normal Inspection. No: Edema Neurological: Present: GCS=15, Speech Normal Skin: Present: Warm, Dry, Normal Color. No: Rashes Psychiatric: Present: Alert, Oriented x 3 Medical Decision Making ED Course and Treatment: 04/07/18 01:51 Impression: 32 year old female complaining of acid reflux/burning sensation for 2 days. Plan: -- Pepcid -- Reassess and disposition Progress Notes: pt is non toxic well appearing; no distress. resting comfortably in er on cell phone. pt denies abdominal pain, no fever/chills. no uri symptoms. pt with hx of acid reflux prior to . will start pepcid. pt was advised to f/u with manufacturing team member tomorrow. advised immediate return if symptoms worsen,persist or if new symptoms develop. Patient verbalizes understanding of discharge instructions and need for immediate followup. all aspects of this case were discussed the attending of record. Impression: Gastritis Pepcid once daily Follow-up with her rrts tomorrow Return immediately if symptoms worsen persist or if new concerning symptoms develop - Scribe Statement The provider has reviewed the documentation as recorded by the Elva Oscar Provider Scribe Attestation: All medical record entries made by the Scribe were at my direction and personally dictated by me. I have reviewed the chart and agree that the record accurately reflects my personal performance of the history, physical exam, medical decision making, and the department course for this patient. I have also personally directed, reviewed, and agree with the discharge instructions and disposition. Disposition/Present on Arrival - Present on Arrival Any Indicators Present on Arrival: No History of DVT/PE: No History of Uncontrolled Diabetes: No Urinary Catheter: No History of Decub. Ulcer: No History Surgical Site Infection Following: None - Disposition Have Diagnosis and Disposition been Completed?: Yes Diagnosis: Gastritis Disposition: HOME/ ROUTINE Disposition Time: 02:19 Patient Plan: Discharge Condition: GOOD Discharge Instructions (ExitCare): Gastritis Additional Instructions: Pepcid once daily Follow-up with the rrts tomorrow Return immediately if symptoms worsen persist or if new concerning symptoms develop Prescriptions: Famotidine [Pepcid] 20 mg PO DAILY #30 tab Referrals: Akil Azul [Medical Doctor] - Follow up with primary Forms: [facility] (Uzbek)
[2018-04-07 02:18] VITALS: PULSE 97; RESP 17; O2SAT 96
[2018-04-07 02:29] VITALS: BP 130/71
== END 2018-04-07 02:28 | disposition home or self-care (01) ==
LOC: ED 00:37
DX: O99.613 Diseases of the digestive system complicating pregnancy, third trimester (principal); K29.70 Gastritis, unspecified, without bleeding; Z3A.36 36 weeks gestation of pregnancy